=== PATIENT | male | born 1955 | race Two or more races ===

== ENCOUNTER 2018-10-28 11:27 | Emergency (ER) | payer OTHER ==
[~2018-10-28] VITALS: Ht 165.1 cm; Wt 73.9 kg
== END 2018-10-28 20:26 | disposition home or self-care (01) ==
LOC: ER 11:27
DX: N20.0 Calculus of kidney (principal)

== ENCOUNTER 2018-10-29 15:05 | Outpatient (CLI) | payer OTHER | END 2018-10-29 15:13 | disposition home or self-care (01) | LOC: RAD 501 15:05 | DX: N20.1 Calculus of ureter (principal) ==

== ENCOUNTER 2019-04-10 13:54 | Emergency (ER) | payer OTHER ==
[~2019-04-10] VITALS: Ht 167.6 cm; Wt 68.0 kg
== END 2019-04-10 16:16 | disposition home or self-care (01) ==
LOC: ER 13:54
DX: S00.271A Other superficial bite of right eyelid and periocular area, initial encounter (principal); L03.213 Periorbital cellulitis; W57.XXXA Bitten or stung by nonvenomous insect and other nonvenomous arthropods, initial encounter; Y93.89 Activity, other specified; Y92.89 Other specified places as the place of occurrence of the external cause; Y99.8 Other external cause status

== ENCOUNTER 2019-06-02 11:28 | Emergency (ER) | payer OTHER ==
[~2019-06-02] VITALS: Ht 167.6 cm; Wt 68.0 kg
== END 2019-06-02 12:43 | disposition home or self-care (01) ==
LOC: ER 11:28
DX: R11.11 Vomiting without nausea (principal)